=== PATIENT | female | born 1975 | race Caucasian/White ===

== ENCOUNTER 2018-12-16 09:53 | Outpatient (CLI) | payer OTHER ==
[~2018-12-16 09:53] MED LIST: ALDOMET250 MG; DORYX100 MG PO; PREVACID15 MG PO; SYNTHROID100 MCG
== END 2018-12-16 09:55 | disposition home or self-care (01) ==
LOC: SONOGRAMA 09:53
DX: E04.2 Nontoxic multinodular goiter (principal)